=== PATIENT | female | born 2000 | race Caucasian/White ===

== ENCOUNTER 2020-05-17 09:00 | Emergency (ER) | payer OTHER ==
[~2020-05-17] VITALS: Ht 165.1 cm; Wt 50.0 kg
--- NOTE | 2020-05-17 09:22 | NUR ---
DR BUCHANAN AT FOR EXAM. PT REPORTS ENDOSCOPY LAST MONTH, RECENT SIGNIFICANT WEIGHT LOSS. C/O EPIGASTRIC AREA PAIN. VOMITED YESTERDAY. + MARIJUANA USE. WAS TAKING PRILOSEC X 14 DAYS - LAST DOSE: PRIOR TO ENDOSCOPY. LMP: 05/16/20. LAST BM: 05/16/20 LAST ORAL INTAKE: FOOD 05/16/20, SIP OF WATER TODAY. GI FOLLOW-UP APPT 05/26/20.
[2020-05-17] MEDS ORDERED: BIRTH CONTROL (09:29)
[2020-05-17] MEDS ORDERED: SODIUM CHLORIDE FLUSH 10ML SYR IVF ONE (09:30)
[2020-05-17] MEDS ORDERED: MAALOX/HYOSCYAMINE/LIDOCAINE 45 ML BTL PO ONE (09:30)
[2020-05-17] MEDS ORDERED: ONDANSETRON 2MG/ML, 2ML IVPush ONE (09:30)
[2020-05-17] MEDS ORDERED: FAMOTIDINE 20 MG/2 ML IVPush ONE (09:30)
[2020-05-17] MEDS ORDERED: SODIUM CHLORIDE 0.9% 1,000ML IVBOLUS ONE (09:30)
[2020-05-17] MEDS ORDERED: ONDANSETRON 2MG/ML, 2ML ONE (09:38)
[2020-05-17] MEDS ORDERED: MAALOX/HYOSCYAMINE/LIDOCAINE 45 ML BTL ONE (09:38)
[2020-05-17] MEDS ORDERED: FAMOTIDINE 20 MG/2 ML ONE (09:38)
[2020-05-17 09:45] LABS: BASOPHILS % (AUTO) 1 % (0-1); EOSINOPHILS % (AUTO) 3 % (1-7); LYMPHOCYTES % (AUTO) 30 % (22-44); MEAN CORPUSCULAR HEMOGLOBIN 31.8 pg (27.0-34.8); MEAN CORPUSCULAR HGB CONC 34.3 g/dL (32.4-35.8); MEAN PLATELET VOLUME 8.4 fL (7.4-10.4); MONOCYTES % (AUTO) 7 % (2-9); NEUTROPHILS % (AUTO) 60 % (42-75); PLATELET COUNT 255 x10^3/uL (130-400); RED BLOOD COUNT 4.34 x10^6/uL (3.82-5.3); RED CELL DISTRIBUTION WIDTH 12.1 % (9.6-15.2)
[2020-05-17 09:46] LABS: MD NO
--- NOTE | 2020-05-17 09:47 | NUR ---
PT AMBULATORY TO & FROM [facility] W/OUT INCIDENT; GAIT STEADY; VOIDED SPECIMEN PROVIDED.
[2020-05-17 09:54] LABS: ALANINE AMINOTRANSFERASE 12 U/L (12-78); ALBUMIN 4.3 g/dL (3.4-5.0); ANION GAP 9 mmol/L (5-15); CALCIUM 8.8 mg/dL (8.5-10.1); CHLORIDE 108 mmol/L (98-107); CREATININE 0.72 mg/dL (0.55-1.02)
[2020-05-17 09:58] LABS: ALKALINE PHOSPHATASE 57 U/L (45-117); BILIRUBIN,TOTAL 1.6 mg/dL (0.2-1.0); TOTAL PROTEIN 7.3 g/dL (6.4-8.2)
--- NOTE | 2020-05-17 09:59 | NUR ---
IV INITIATED. PT MEDICATED PER EMAR; NOTIFIED OF NPO STATUS. PT REPORTS HX OF METH ABUSE, LAXATIVE ABUSE (STOPPED 2 YRS AGO), EATING DISORDER (ANOREXIA). PROVIDER WILL BE NOTIFIED.
[2020-05-17 10:30] LABS: MICROSCOPIC AUTO
--- NOTE | 2020-05-17 10:30 | NUR ---
REGISTRATION AT BS. PT DENIES PAIN, NAUSEA.
--- NOTE | 2020-05-17 12:04 | NUR ---
SITTING QUIETLY ON GURNEY. BOYFRIEND IN ROOM.
[2020-05-17 12:06] VITALS: BP 118/84
== END 2020-05-17 12:33 | disposition home or self-care (01) ==
LOC: ED 10:33
DX: R10.13 Epigastric pain (principal); R11.2 Nausea with vomiting, unspecified
CPT/HCPCS: 36415; 74022; 80053; 81001; 83690; 84443; 84703; 85025; 93005; 96361; 96374; 96375; 99285; J2405; J7030

== ENCOUNTER → 2020-06-19 | Outpatient (CLI) | payer OTHER ==
[~2020-06-19] MED LIST: BIRTH CONTROL
== END | disposition home or self-care (01) ==
LOC: RAD 12:12
PROVIDERS: ATTEND Internal Medicine
DX: R10.84 Generalized abdominal pain (principal); R10.13 Epigastric pain; R63.4 Abnormal weight loss
CPT/HCPCS: 78264; A9541